=== PATIENT | female | born 1975 | race American Indian/Alaskan Native ===

== ENCOUNTER 2020-02-24 12:00 | Outpatient (CLI) | payer MEDICAID ==
--- NOTE | 2020-02-24 14:58 | XRay Report ---
IVP WITHOUT TOMOGRAPHY HISTORY: Microscopic hematuria, history of right ureteral replacement in 1975. Lupus. TECHNIQUE: 100 cc of Omnipaque 300 was injected intravenously. AP and or oblique images of the abdome n were obtained at 1, 5, 10 and 15 minutes. FINDINGS: [facility] [employer] film of the abdomen demonstrates no obvious renal calcifications. The renal shadows appear norm al size and contour. Following the injection of IV contrast, there is prompt bilateral symmetric neph rograms which appear unremarkable. There is symmetric excretion of contrast agent bilaterally. The ur eters appear normal course and caliber throughout. No filling defect or abnormal dilatation is apprec iated. There is normal filling of the bladder. The post void film demonstrates a small post void resi dual. IMPRESSION: Essentially unremarkable IVP. There is no evidence for nephrolithiasis, filling defect or hydronephro sis. Small post void residual. Signer Name: Finn Falk Jr, MD Signed: 02/24/2020 2:53 PM Workstation Name: [id number]
== END 2020-02-24 12:01 | disposition home or self-care (01) ==
LOC: FLUORO 12:00
PROVIDERS: ATTEND Urology
DX: R31.29 Other microscopic hematuria (principal)
CPT/HCPCS: 74400; Q9967